=== PATIENT | male | born 1990 | race Hispanic/Latino ===

== ENCOUNTER 2020-12-15 14:05 | Inpatient (IN) | payer BC ==
[2020-12-15] VITALS (9 sets, daily range): BP systolic 119–131; BP diastolic 70–75
[~2020-12-15] VITALS: Ht 193 cm; Wt 154.2 kg
[2020-12-15] MEDS ORDERED: METOCLOPRAMIDE HCL 10 MG/2ML VIAL IV PRN (16:30)
[2020-12-15] MEDS ORDERED: MORPHINE SULFATE INJ 4 MG/ML INJ 1ML IV PRN (16:30)
[2020-12-15 16:56] LABS: BASOPHILS # (AUTO) 0.1 (0.0-0.1); BASOPHILS % 0.4 % (0.0-1.0); HEMATOCRIT 52.2 % (38.2-49.6); HEMOGLOBIN 16.8 g/dL (14.0-18.0); LYMPHOCYTES # (AUTO) 2.4 (1.0-3.2); LYMPHOCYTES % 8.4 % (18.0-39.1); MEAN CORPUSCULAR HEMOGLOBIN 28.2 pg (28-32); MEAN CORPUSCULAR HGB CONC 32.2 g/dL (31-35); MEAN CORPUSCULAR VOLUME 87.6 fL (81-99); MONOCYTES # (AUTO) 1.9 (0.2-0.8); MONOCYTES % 6.5 % (4.4-11.3); NEUTROPHILS % 82.9 % (38.7-80.0); PLATELET COUNT 285 x10e3/uL (140-360); RED BLOOD COUNT 5.96 x10e6/uL (4.3-5.7); RED CELL DISTRIBUTION WIDTH 13.1 % (11.7-14.4)
[2020-12-15] MEDS: ONDANSETRON HCL INJ 2MG/ML 2ML 2 MG/ML VIAL IV PRN (17:00)
[2020-12-15] MEDS ORDERED: ASPIRIN 81 MG CHEW TAB PO ONE (17:00)
[2020-12-15] MEDS ORDERED: DEXTROSE 50% SYRINGE 50 ML IV PRN (17:15)
[2020-12-15 17:19] LABS: ALBUMIN 4.1 g/dL (3.5-5.0); ALBUMIN/GLOBULIN RATIO 0.9 (0.8-2.0); CALCIUM 8.2 mg/dL (8.4-10.2); CREATININE, SERUM 1.43 mg/dL (0.72-1.25)
[2020-12-15 17:21] LABS: MAGNESIUM 2.3 MG/DL (1.3-2.1); PHOSPHORUS 3.9 MG/DL (2.3-4.7)
[2020-12-15 17:24] LABS: CREATINE KINASE 39 IU/L (30-200)
[2020-12-15] MEDS: INSULIN REGULAR, HUMAN 3ML VL 100 UNIT in SODIUM CHLORIDE 0.9% 100 ML 99 ML IV SCH ×2 (17:40)
[2020-12-15] MEDS ORDERED: SODIUM CHLORIDE 0.9% 1000ML 2,000 ML IV SCH (18:00)
[2020-12-15 18:13] LABS: ABG HCO3 4 mmol/L (22-26); ABG PCO2 13 mmHg (35-45); ABG PH 7.05 (7.35-7.45); ABG PO2 132 mmHg (80-105); ABG TCO2 5
[2020-12-15] MEDS: SODIUM BICARBONATE 8.4% SYRING 150 ML in DEXTROSE 5%/0.45% SOD CHL 1,000 ML IV SCH (18:23)
[2020-12-15] MEDS: PIPERACILLIN/TAZOBAC 3.375 GM in SODIUM CHLORIDE 0.9% 50ML 50 ML IV SCH (20:20)
[2020-12-15] MEDS: FAMOTIDINE 20 MG/2 ML VIAL IV SCH (20:20)
[2020-12-15 20:50] LABS: BAND NEUTROPHILS % (MANUAL) 1 %; LYMPHOCYTES % (MANUAL) 9 % (19-48); MONOCYTES % (MANUAL) 5 % (3.4-9.0); MYELOCYTES % (MANUAL) 1 % (0-0); NEUTROPHILS % (MANUAL) 84 % (40-74); PLATELET ESTIMATE ADEQUATE; PLATELET MORPHOLOGY COMMENT NORMAL; RBC MORPHOLOGY COMMENT NORMAL
[2020-12-15] MEDS ORDERED: ACETAMINOPHEN 325 MG TAB PO PRN (22:45)
[2020-12-15 22:51] LABS: ANION GAP 24.6 mmol/L (8-16); BLOOD UREA NITROGEN 12 mg/dL (7-26); BUN/CREATININE RATIO 10 (6-25); CALCIUM 7.6 mg/dL (8.4-10.2); CHLORIDE 111 mmol/L (98-107); CREATININE, SERUM 1.25 mg/dL (0.72-1.25); EST GLOMERULAR FILTRATION RATE > 60 ML/MIN (60-); GLUCOSE 186 mg/dL (74-118); POTASSIUM 3.6 mmol/L (3.5-5.1); SODIUM 137 mmol/L (136-145)
[2020-12-15 22:52] LABS: CARBON DIOXIDE 5 mmol/L (22-29)
[2020-12-15] MEDS: IPRATROPIUM BROMIDE 0.02% 2.5 ML NEB NEB SCH (23:30)
[2020-12-16] VITALS (27 sets, daily range): BP systolic 80–127; BP diastolic 35–72
[2020-12-16] MEDS: PIPERACILLIN/TAZOBAC 3.375 GM in SODIUM CHLORIDE 0.9% 50ML 50 ML IV SCH ×4 (02:19→20:45)
[2020-12-16 02:40] LABS: ANION GAP 20.3 mmol/L (8-16); BLOOD UREA NITROGEN 11 mg/dL (7-26); BUN/CREATININE RATIO 9 (6-25); CALCIUM 7.2 mg/dL (8.4-10.2); CHLORIDE 111 mmol/L (98-107); CREATININE, SERUM 1.16 mg/dL (0.72-1.25); EST GLOMERULAR FILTRATION RATE > 60 ML/MIN (60-); GLUCOSE 158 mg/dL (74-118); POTASSIUM 3.3 mmol/L (3.5-5.1); SODIUM 136 mmol/L (136-145)
[2020-12-16 02:41] LABS: CARBON DIOXIDE 8 mmol/L (22-29)
[2020-12-16 04:18] LABS: CREATINE KINASE 29 IU/L (30-200)
[2020-12-16] MEDS: SODIUM BICARBONATE 8.4% SYRING 150 ML in DEXTROSE 5%/0.45% SOD CHL 1,000 ML IV SCH (06:21)
[2020-12-16 06:22] LABS: BASOPHILS % 0.2 % (0.0-1.0); EOSINOPHILS % 0.1 % (0.0-6.0); HEMOGLOBIN 13.3 g/dL (14.0-18.0); LYMPHOCYTES # (AUTO) 2.1 (1.0-3.2); MEAN CORPUSCULAR HEMOGLOBIN 27.7 pg (28-32); MEAN CORPUSCULAR HGB CONC 33.3 g/dL (31-35); MEAN CORPUSCULAR VOLUME 83.2 fL (81-99); MONOCYTES # (AUTO) 1.3 (0.2-0.8); MONOCYTES % 9.3 % (4.4-11.3); NEUTROPHILS # (AUTO) 10.7 (2.1-6.9); NEUTROPHILS % 74.8 % (38.7-80.0); PLATELET COUNT 187 x10e3/uL (140-360); RED BLOOD COUNT 4.81 x10e6/uL (4.3-5.7); RED CELL DISTRIBUTION WIDTH 13.2 % (11.7-14.4)
[2020-12-16 06:36] LABS: ALANINE AMINOTRANSFERASE 11 IU/L (0-55); ALBUMIN 3.1 g/dL (3.5-5.0); ALBUMIN/GLOBULIN RATIO 0.9 (0.8-2.0); ALKALINE PHOSPHATASE 80 IU/L (40-150); BLOOD UREA NITROGEN 9 mg/dL (7-26); BUN/CREATININE RATIO 8 (6-25); CALCIUM 7.4 mg/dL (8.4-10.2); CARBON DIOXIDE 11 mmol/L (22-29); CHLORIDE 110 mmol/L (98-107); CREATININE, SERUM 1.12 mg/dL (0.72-1.25); EST GLOMERULAR FILTRATION RATE > 60 ML/MIN (60-); GLUCOSE 137 mg/dL (74-118); MAGNESIUM 2.1 MG/DL (1.3-2.1); PHOSPHORUS 1.4 MG/DL (2.3-4.7); SODIUM 136 mmol/L (136-145)
[2020-12-16 06:43] LABS: CREATINE KINASE MB 0.7 ng/mL (0-5.0)
[2020-12-16 06:55] LABS: THYROID STIMULATING HORMONE 0.277 uIU/mL (0.350-4.940)
[2020-12-16] MEDS: IPRATROPIUM BROMIDE 0.02% 2.5 ML NEB NEB SCH (07:00)
[2020-12-16] MEDS: DEXTROSE 5%/0.45% SOD CHL 1,000 ML IV SCH ×3 (07:15→21:02)
[2020-12-16] MEDS ORDERED: POTASSIUM CHLORIDE 20MEQ/100ML 200 ML IV ONE ×2 (07:15→21:30)
[2020-12-16] MEDS ORDERED: CALCIUM GLUCONATE 10% INJ 4.65 MEQ in SODIUM CHLORIDE 0.9% 50ML 50 ML IV ONE (08:30)
[2020-12-16] MEDS: FAMOTIDINE 20 MG/2 ML VIAL IV SCH ×2 (08:51→17:00)
[2020-12-16 10:51] LABS: BLOOD UREA NITROGEN 8 mg/dL (7-26); BUN/CREATININE RATIO 8 (6-25); CALCIUM 7.3 mg/dL (8.4-10.2); CHLORIDE 110 mmol/L (98-107); CREATININE, SERUM 1.03 mg/dL (0.72-1.25); EST GLOMERULAR FILTRATION RATE > 60 ML/MIN (60-); GLUCOSE 140 mg/dL (74-118); SODIUM 138 mmol/L (136-145)
[2020-12-16 10:52] LABS: CARBON DIOXIDE 9 mmol/L (22-29)
[2020-12-16] MEDS ORDERED: POTASSIUM PHOSPHATE 20 MM in SODIUM CHLORIDE 0.9% 250ML 250 ML IV ONE (11:00)
[2020-12-16 14:37] LABS: ANION GAP 18.3 mmol/L (8-16); BLOOD UREA NITROGEN 6 mg/dL (7-26); BUN/CREATININE RATIO 6 (6-25); CALCIUM 7.4 mg/dL (8.4-10.2); CARBON DIOXIDE 11 mmol/L (22-29); CHLORIDE 109 mmol/L (98-107); CREATININE, SERUM 1.06 mg/dL (0.72-1.25); EST GLOMERULAR FILTRATION RATE > 60 ML/MIN (60-); GLUCOSE 172 mg/dL (74-118); POTASSIUM 3.3 mmol/L (3.5-5.1); SODIUM 135 mmol/L (136-145)
[2020-12-16] MEDS ORDERED: DEXTROSE 5%/0.45% SOD CHL 1,000 ML IV ONE (15:00)
[2020-12-16] MEDS: INSULIN REGULAR, HUMAN 3ML VL 100 UNIT in SODIUM CHLORIDE 0.9% 100 ML 99 ML IV SCH ×2 (16:45)
[2020-12-16] MEDS ORDERED: MAGNESIUM/ALUMINUM/SIMETHICONE 30 ML UDC PO PRN (20:45)
[2020-12-16] MEDS ORDERED: MAGNESIUM/ALUMINUM/SIMETHICONE 30 ML UDC ONE (20:45)
[2020-12-16] MEDS: ONDANSETRON HCL INJ 2MG/ML 2ML 2 MG/ML VIAL IV PRN (20:50)
[2020-12-16] MEDS: INSULIN GLARGINE 100 UNITS/ML VIAL SQ SCH (21:03)
[2020-12-16 21:11] LABS: ANION GAP 19.9 mmol/L (8-16); BLOOD UREA NITROGEN 5 mg/dL (7-26); BUN/CREATININE RATIO 5 (6-25); CALCIUM 7.5 mg/dL (8.4-10.2); CARBON DIOXIDE 12 mmol/L (22-29); CHLORIDE 108 mmol/L (98-107); CREATININE, SERUM 1.01 mg/dL (0.72-1.25); EST GLOMERULAR FILTRATION RATE > 60 ML/MIN (60-); GLUCOSE 154 mg/dL (74-118); SODIUM 137 mmol/L (136-145)
[2020-12-16 21:14] LABS: POTASSIUM 2.9 mmol/L (3.5-5.1)
[2020-12-16] MEDS ORDERED: SODIUM BICARBONATE 8.4% INJ 50 ML SYR IV STA (21:24)
[2020-12-17] VITALS (26 sets, daily range): BP systolic 93–147; BP diastolic 48–88
[2020-12-17] MEDS ORDERED: CALCIUM CARBONATE 500 MG CHEWABLE TABS PO PRN (00:30)
[2020-12-17] MEDS: PIPERACILLIN/TAZOBAC 3.375 GM in SODIUM CHLORIDE 0.9% 50ML 50 ML IV SCH ×4 (02:30→20:01)
[2020-12-17] MEDS: DEXTROSE 5%/0.45% SOD CHL 1,000 ML IV SCH ×5 (04:50→22:25)
[2020-12-17] MEDS: ONDANSETRON HCL INJ 2MG/ML 2ML 2 MG/ML VIAL IV PRN ×2 (05:05→08:40)
[2020-12-17 05:12] LABS: BASOPHILS % 0.2 % (0.0-1.0); EOSINOPHILS % 0.1 % (0.0-6.0); HEMATOCRIT 32.2 % (38.2-49.6); HEMOGLOBIN 10.6 g/dL (14.0-18.0); LYMPHOCYTES % 24.3 % (18.0-39.1); MEAN CORPUSCULAR HEMOGLOBIN 28.3 pg (28-32); MEAN CORPUSCULAR HGB CONC 32.9 g/dL (31-35); MEAN CORPUSCULAR VOLUME 85.9 fL (81-99); MONOCYTES # (AUTO) 0.6 (0.2-0.8); MONOCYTES % 7.9 % (4.4-11.3); NEUTROPHILS # (AUTO) 5.5 (2.1-6.9); PLATELET COUNT 143 x10e3/uL (140-360); RED BLOOD COUNT 3.75 x10e6/uL (4.3-5.7); RED CELL DISTRIBUTION WIDTH 13.6 % (11.7-14.4)
[2020-12-17 06:51] LABS: ANION GAP 19.8 mmol/L (8-16); BLOOD UREA NITROGEN < 5 mg/dL (7-26); CALCIUM 7.6 mg/dL (8.4-10.2); CARBON DIOXIDE 13 mmol/L (22-29); CHLORIDE 108 mmol/L (98-107); CREATININE, SERUM 0.94 mg/dL (0.72-1.25); EST GLOMERULAR FILTRATION RATE > 60 ML/MIN (60-); GLUCOSE 168 mg/dL (74-118); SODIUM 138 mmol/L (136-145)
[2020-12-17 06:52] LABS: BUN/CREATININE RATIO 5 (6-25); POTASSIUM 2.8 mmol/L (3.5-5.1)
[2020-12-17 07:09] LABS: MAGNESIUM 2.1 MG/DL (1.3-2.1); PHOSPHORUS 1.1 MG/DL (2.3-4.7)
[2020-12-17] MEDS ORDERED: SODIUM CHLORIDE 0.9% 500ML 500 ML ONE (08:04)
[2020-12-17] MEDS ORDERED: POTASSIUM CHLORIDE 20MEQ/100ML 200 ML ONE (08:04)
[2020-12-17] MEDS ORDERED: PANTOPRAZOLE 40 MG 10ML VIAL ONE (08:35)
[2020-12-17] MEDS ORDERED: ONDANSETRON HCL INJ 2MG/ML 2ML 2 MG/ML VIAL ONE (08:35)
[2020-12-17] MEDS ORDERED: FAMOTIDINE 20 MG/2 ML VIAL IV ONE (08:36)
[2020-12-17] MEDS: POTASSIUM CHLORIDE 20MEQ/100ML 100 ML IV SCH ×3 (08:40→12:00)
[2020-12-17] MEDS: FAMOTIDINE 20 MG/2 ML VIAL IV SCH ×2 (08:41→16:53)
[2020-12-17] MEDS: PANTOPRAZOLE 40 MG 10ML VIAL IV SCH (09:54)
[2020-12-17] MEDS: INSULIN REGULAR, HUMAN 3ML VL 100 UNIT in SODIUM CHLORIDE 0.9% 100 ML 99 ML IV SCH ×2 (14:25)
[2020-12-17 17:39] LABS: ANION GAP 19.1 mmol/L (8-16); BLOOD UREA NITROGEN < 5 mg/dL (7-26); CALCIUM 7.7 mg/dL (8.4-10.2); CARBON DIOXIDE 14 mmol/L (22-29); CHLORIDE 107 mmol/L (98-107); CREATININE, SERUM 0.91 mg/dL (0.72-1.25); EST GLOMERULAR FILTRATION RATE > 60 ML/MIN (60-); GLUCOSE 151 mg/dL (74-118); POTASSIUM 3.1 mmol/L (3.5-5.1); SODIUM 137 mmol/L (136-145)
[2020-12-17 17:40] LABS: BUN/CREATININE RATIO 5 (6-25)
[2020-12-17] MEDS ORDERED: PANTOPRAZOLE 40 MG 10ML VIAL IV SCH (21:00)
[2020-12-17] MEDS: INSULIN GLARGINE 100 UNITS/ML VIAL SQ SCH (21:18)
[2020-12-18] VITALS (26 sets, daily range): BP systolic 99–160; BP diastolic 66–99
[2020-12-18] MEDS: PIPERACILLIN/TAZOBAC 3.375 GM in SODIUM CHLORIDE 0.9% 50ML 50 ML IV SCH ×4 (02:08→20:18)
[2020-12-18 06:28] LABS: ANION GAP 15.5 mmol/L (8-16); BLOOD UREA NITROGEN < 5 mg/dL (7-26); CALCIUM 7.6 mg/dL (8.4-10.2); CARBON DIOXIDE 20 mmol/L (22-29); CHLORIDE 106 mmol/L (98-107); CREATININE, SERUM 0.84 mg/dL (0.72-1.25); EST GLOMERULAR FILTRATION RATE > 60 ML/MIN (60-); GLUCOSE 117 mg/dL (74-118); SODIUM 139 mmol/L (136-145)
[2020-12-18] MEDS: DEXTROSE 5%/0.45% SOD CHL 1,000 ML IV SCH (06:28)
[2020-12-18 06:33] LABS: BUN/CREATININE RATIO 6 (6-25)
[2020-12-18 06:34] LABS: POTASSIUM 2.5 mmol/L (3.5-5.1)
[2020-12-18] MEDS ORDERED: POTASSIUM CHLORIDE 40 MEQ in DEXTROSE 5%/0.45% SOD CHL 1,000 ML IV SCH ×3 (06:45→17:00)
[2020-12-18] MEDS ORDERED: POTASSIUM CHLORIDE 20MEQ/100ML 300 ML ONE (06:46)
[2020-12-18] MEDS ORDERED: SODIUM CHLORIDE 0.9% 500ML 500 ML ONE (06:47)
[2020-12-18] MEDS: POTASSIUM CHLORIDE 20MEQ/100ML 200 ML IV SCH ×6 (07:00→12:17)
[2020-12-18] MEDS: FAMOTIDINE 20 MG/2 ML VIAL IV SCH ×2 (07:46→16:50)
[2020-12-18] MEDS: PANTOPRAZOLE 40 MG 10ML VIAL IV SCH ×2 (07:46→16:50)
[2020-12-18] MEDS ORDERED: POTASSIUM CHLORIDE 20MEQ/100ML 100 ML IV SCH (08:00)
[2020-12-18] MEDS ORDERED: POTASSIUM PHOSPHATE 20 MM in SODIUM CHLORIDE 0.9% 250ML 250 ML IV ONE (11:00)
[2020-12-18] MEDS: INSULIN REGULAR, HUMAN 3ML VL 100 UNIT in SODIUM CHLORIDE 0.9% 100 ML 99 ML IV SCH ×4 (12:08→18:48)
[2020-12-18 16:21] LABS: ALANINE AMINOTRANSFERASE 12 IU/L (0-55); ALBUMIN 3.1 g/dL (3.5-5.0); ALKALINE PHOSPHATASE 89 IU/L (40-150); ANION GAP 17.3 mmol/L (8-16); BLOOD UREA NITROGEN < 5 mg/dL (7-26); CARBON DIOXIDE 22 mmol/L (22-29); CHLORIDE 103 mmol/L (98-107); CREATININE, SERUM 0.84 mg/dL (0.72-1.25); EST GLOMERULAR FILTRATION RATE > 60 ML/MIN (60-); GLUCOSE 191 mg/dL (74-118); MAGNESIUM 1.9 MG/DL (1.3-2.1); POTASSIUM 3.3 mmol/L (3.5-5.1); SODIUM 139 mmol/L (136-145)
[2020-12-18 16:29] LABS: BUN/CREATININE RATIO 6 (6-25)
[2020-12-18] MEDS ORDERED: INSULIN LISPRO 100 UNIT/1 ML 3ML VIAL SQ SCH (16:30)
[2020-12-18] MEDS: INSULIN LISPRO 100 UNIT/1 ML 3ML VIAL SQ SCH ×3 (16:30→21:26)
[2020-12-18] MEDS ORDERED: DEXTROSE 5%/0.45% SOD CHL 1,000 ML IV SCH (17:30)
[2020-12-18] MEDS ORDERED: POTASSIUM CHLORIDE 10MEQ/100ML 100 ML INJ SCH (17:30)
[2020-12-18] MEDS ORDERED: SODIUM CHLORIDE 0.9% 100 ML ONE (18:00)
[2020-12-18] MEDS: INSULIN GLARGINE 100 UNITS/ML VIAL SQ SCH (21:27)
[2020-12-19] VITALS (8 sets, daily range): BP systolic 120–134; BP diastolic 77–102
[2020-12-19] MEDS ORDERED: PIPERACILLIN/TAZOBAC 3.375 GM VIAL ONE ×2 (01:20→07:28)
[2020-12-19] MEDS ORDERED: SODIUM CHLORIDE 0.9% 50ML 0 ML ONE (01:21)
[2020-12-19] MEDS: PIPERACILLIN/TAZOBAC 3.375 GM in SODIUM CHLORIDE 0.9% 50ML 50 ML IV SCH ×2 (02:17→08:00)
[2020-12-19] MEDS ORDERED: MIDAZOLAM HCL 5MG/ML 10ML VIAL 100 ML IV ONE (03:36)
[2020-12-19 05:41] LABS: BLOOD UREA NITROGEN < 5 mg/dL (7-26); CALCIUM 8.2 mg/dL (8.4-10.2); CARBON DIOXIDE 26 mmol/L (22-29); CHLORIDE 102 mmol/L (98-107); EST GLOMERULAR FILTRATION RATE > 60 ML/MIN (60-); GLUCOSE 157 mg/dL (74-118); SODIUM 140 mmol/L (136-145)
[2020-12-19 05:52] LABS: BUN/CREATININE RATIO 6 (6-25)
[2020-12-19] MEDS: INSULIN LISPRO 100 UNIT/1 ML 3ML VIAL SQ SCH ×4 (07:30→12:02)
[2020-12-19] MEDS ORDERED: SODIUM CHLORIDE 0.9% 50ML 50 ML ONE (07:30)
[2020-12-19] MEDS: FAMOTIDINE 20 MG/2 ML VIAL IV SCH (08:17)
[2020-12-19] MEDS: PANTOPRAZOLE 40 MG 10ML VIAL IV SCH (08:18)
[2020-12-19] MEDS ORDERED: POTASSIUM CHLORIDE 10MEQ EA PO ONE (09:00)
[2020-12-19] MEDS ORDERED: PEPCID20 MG PO (14:22)
[2020-12-20] MEDS ORDERED: OMEPRAZOLE 20 MG CAP PO SCH (06:00)
== END 2020-12-19 14:56 | disposition home or self-care (01) | DRG 638 ==
LOC: ICU 15:51 → MED/SURG 12-18 23:34
PROVIDERS: ADMIT Internal Medicine; ATTEND Internal Medicine
DX: E10.10 Type 1 diabetes mellitus with ketoacidosis without coma (principal); Z68.41 Body mass index [BMI] 40.0-44.9, adult; E66.01 Morbid (severe) obesity due to excess calories; R11.2 Nausea with vomiting, unspecified; Z79.4 Long term (current) use of insulin; E10.42 Type 1 diabetes mellitus with diabetic polyneuropathy
CPT/HCPCS: 36415; 36569; 36600; 71045; 76705; 80048; 80053; 82550; 82553; 82805; 82948; 83036; 83735; 84100; 84443; 84484; 85025; 94640; 96372; J0610; J1815; J1817; J2270; J2405; J2543; J3480; J7030; J7040; J7050